=== PATIENT | male | born 1950 | race Two or more races ===

== ENCOUNTER → 2020-03-30 | Outpatient (CLI) | payer MEDICARE ==
--- NOTE | 2020-03-30 09:28 | ST Modified Barium Swallow ---
Recommendation - Recommendations Recommendations: Recommend thin liquids with no straws, mechanical soft or puree solids, strict aspiration precautions. Continue with home health speech therapy to address pharyngeal weakness. Medical Diagnoses - Medical Diagnoses Medical Diagnosis Description & ICD-10 Code(s): R13.10 dysphagia Other Medical Diagnoses/Co-Morbidities: per daughter report: craniotomy, PEG placement, CVA ST Modified Barium Swallow - General Date: 03/30/20 Referring Physician: VERONICA Navarrete Risks/Precautions: Falls, Aspiration Date of Onset: 06/18/19 - approximate onset Reason for Referral: swallowing deficits following CVA - History History obtained from: Family -: Medical - Patient arrived with daughter, who contributed for medical history. Patient reportedly had a CVA in June of this year, requiring hospitalization and SNF admissions. Patient reportedly had partial craniotomy when in the hospital, had skull plate replaced. This was in [place], the patient is now here with family. The patient had a PEG in place, daughter reports that water and medications are given via PEG, patient is also eating and drinking by mouth. Daughter reports that thickened liquids and blended or very soft solids were recommended for the patient, however, she is unaware of any prior instrumental swallow assessment. She does report that the patient had pneumonia once when in the SNF. He is currently receiving home health physical therapy, occupational therapy, and speech therapy. Medications: list not provided, daughter does report medications for blood pressure and for seizures Allergies: none reported - Functional Status Prior Functional Status: INDEPENDENT: feeding - independent Current Functional Limitations: feeding - modified diet, PEG utilized - Subjective Patient/caregiver goal(s): r/o aspiration Cognitive-Linguistic Function: Functional Speech Intelligibility: Mildly dysarthric Current Nutritional Means: PEG, PO Current PO diet: Pureed, Soft, Thickened liquids Current symptoms: other - history of stroke with swallowing deficits Pain: Patient reports, 2/5 - shoulder pain - Objective Assessment: Upright, Left Lateral - Food Trials Used Food trials used: Thin liquids, Pureed, Regular The patient: Was Able to Self Feed - Oral-Motor Skills Dentition: Partial Velo-pharyngeal function: Unremarkable - Assessment Oral prep: Normal Labial closure: Adequate Leakage: None Mastication: Adequate Oral stage: Piecemeal Deglutition - with regular solids - Pharyngeal Stage Initiation of Pharyngeal Stage Reflex: Normal Decreased laryngeal elevation: Yes - mild Reduced Velopharyngeal Closure: no Reduced pressure generation: Yes Pre-swallow pooling in valleculae: Mild Pre-Swallow pooling in pyriforms: None Reduced pharyngeal peristalsis/contraction: Yes Multiple Swallows with: Cleared w/ Liquid Assist Post-swallow residulas vallecular: Moderate - with regular solids Post-Swallow residuals in pyriforms: Mild - Fall Risk Assessment Medications/Conditions that increase fall risks include: Antidepressants, sedatives, anti-arrhythmic, diuretic, benzodiazipenes, neuroleptics. BP regulation problems, cardiac problems, balance or gait deficits, neurological problems. Fall Risk Actions Taken: No action needed - Behavioral Observations During evaluation process patient: was cooperative - Treatment / Educational Needs: Treatment/Education Needs: Treatment consisted of patient education on the role of the Speech Pathologist. Patient's plan of care and golas were communicated as well as scheduling and attendance policies. Recommendations for initial home program were shared. Patient demonstrated understanding and verbalized agreement. - Impression/Summary Laryngeal Penetration: Yes - trace laryngeal penetration seen with thin liquids on cup sips Tracheal Aspiration: yes - aspiration of thin liquids seen with straw sip only, delayed cough reaction seen with aspiration Productive cough: Yes Patient presents with: Pharyngeal stage dysph. - moderate Risk of Aspiration: Moderate Evaluation and Findings: Patient demonstrates mild to moderately impaired oral phase and moderately impaired pharyngeal phase of the swallow. Patient noted to have piecemeal swallow of solids, required 2-3 swallows to clear oral cavity. Mild residuals seen in valleculae and pyriform sinus after the swallow with thin liquids and purees, as well as some pooling of residuals after the swallow into valleculae. These residuals cleared with dry swallow. Intermittent penetration of thin liquid seen with cup sips due to incomplete airway closure and timing of airway closure. With regular solids, significant valleculae residue and moderate pyriform sinus residue seen after the swallow due to reduced pharyngeal constriction, this cleared with liquid wash. Aspiration seen with straw sips of thin liquid, occuring on the swallow due to incomplete airway closure on the swallow, patient demonstrated delayed cough reaction with this. - Recommendations Solid diet recommendations: Pureed, Mechanical Soft, Ground Meat Liquid Diet Modification: Thin Strict aspiration precautions: Yes Dysphagia therapy with INHALATION THERAPY AIDE: f/u with current thera. Recommended techniques: Fully Upright During Meal, Med Crushed in Applesauce, Small Bites and Sips, Alternate Bites/Sips Information, Precautions and Recommendations: Family Member (Written), Family Member (Verbal) - Time Total Time: 30 - Plan of Care Strategies to optimize patient understanding include:: ongoing assessment of educational needs, implementation of educational strategies, and re-education. - - -: Thank you for the opportunity to work with this patient and his/her family. Should you have any questions about this patient's plan or progress, I can be reached at [phone].
--- NOTE | 2020-03-30 10:58 | RADIOLOGY REPORT (SQ) ---
EXAM DESCRIPTION: CT HEAD WITHOUT IMAGES COMPLETED DATE/TIME: 03/30/2020 9:20 am REASON FOR STUDY: I83.9 CEREBRAL INFARCTION, UNSPECIFIED R13.10 DYSPHAGIA, UNSPECIFIED I63.9 CEREB RAL INFARCTION, UNSPECIFIED COMPARISON: None. TECHNIQUE: Axial images acquired through the brain without intravenous contrast. Images reviewed wi th bone, brain and subdural windows. Additional sagittal and coronal reconstructions were generated. Images stored on PACS. All CT scanners at this facility use dose modulation, iterative reconstruction, and/or weight based d osing when appropriate to reduce radiation dose to as low as reasonably achievable (ALARA). [facility]: Dose Right [facility]: CareDose [facility]: Dose Right [facility]: Teradose 4D [facility]: [employer] RADIATION DOSE: CT Rad equipment meets quality standard of care and radiation dose reduction techniq ues were employed. CTDIvol: 48.6 mGy. DLP: 905 mGy-cm. mGy. LIMITATIONS: None. FINDINGS: VENTRICLES: Ex vacuo enlargement of the right lateral ventricle. CEREBRUM: Geographic encephalomalacia right cerebral hemisphere adjacent to 12.1 by 3.8 cm subdural f luid collection measuring 20 HU. There is an adjacent right craniotomy. 3 mm of right to left midlin e shift. The left cerebral hemisphere is unremarkable. CEREBELLUM: No masses. No hemorrhage. No alteration of density. No evidence for acute infarction. EXTRAAXIAL SPACES: See above. ORBITS AND GLOBE: No intra- or extraconal masses. Normal contour of globe without masses. CALVARIUM: See above. PARANASAL SINUSES: No fluid or mucosal thickening. SOFT TISSUES: No mass or hematoma. OTHER: No other significant finding. IMPRESSION: Subdural hematoma in the right craniotomy surgical bed. 3 mm right to left midline shif t. EVIDENCE OF ACUTE STROKE: NO. COMMENT: The findings were sent to the Radiology Results Communication Center at 10:52 on 0 to be communicated to a licensed caregiver. Quality ID # [id number]: Final reports with documentation of one or more dose reduction techniques (e.g., Au tomated exposure control, adjustment of the mA and/or kV according to patient size, use of iterative reconstruction technique) TECHNICAL DOCUMENTATION: JOB ID: [id number] 2010 [employer]- All Rights Reserved Reading location - IP/workstation name: [email or web address]
--- NOTE | 2020-03-30 11:27 | RADIOLOGY REPORT (SQ) ---
EXAM DESCRIPTION: COOKIE SWALLOW IMAGES COMPLETED DATE/TIME: 03/30/2020 9:18 am REASON FOR STUDY: R13.10 DYSPHAGIA, UNSPECIFIED R13.10 DYSPHAGIA, UNSPECIFIED I63.9 CEREBRAL INFAR CTION, UNSPECIFIED COMPARISON: None. TECHNIQUE: Videofluoroscopic swallowing examination was performed in conjunction with speech patholo gy. Videofluoroscopic imaging was obtained and reviewed and these are the findings: RADIATION DOSE: Fluoro time 3.6 minutes 1 images saved to PACS. LIMITATIONS: None FINDINGS: The patient was brought into the fluoro room and placed upright on a modified barium swall ow chair. The patient was then given multiple consistencies mixed with barium to swallow under live fluoroscopic video guidance. According to the Speech Pathologist there was tracheal aspiration seen with thin barium using a straw. Trace laryngeal penetration seen with cup sips of thin barium. All other consistencies were swallowed without incident. Please refer to the speech pathology report for further details. IMPRESSION: TRACHEAL ASPIRATION WITH THIN BARIUM USING STRAW. PLEASE SEE SPEECH PATHOLOGIST REPORT F OR OTHER FINDINGS AND RECOMMENDATIONS. COMMENT: None Quality ID [id number]: Final reports for procedures using fluoroscopy that document radiation exposure madonna nu, or exposure time and number of fluorographic images (if radiation exposure indices are not avail able) TECHNICAL DOCUMENTATION: JOB ID: [id number] 2010 [email or web address]- All Rights Reserved Reading location - IP/workstation name: [email or web address] [id number]
== END ==
LOC: RAD 08:25
PROVIDERS: ATTEND Physician Assistant
DX: R13.10 Dysphagia, unspecified (principal); I63.9 Cerebral infarction, unspecified
CPT/HCPCS: 70450; 74230